=== PATIENT | male | born 1990 | race Caucasian/White ===

== ENCOUNTER 2017-01-13 19:13 | Emergency (ER) | payer BC ==
[~2017-01-13] VITALS: Ht 190.5 cm; Wt 104.3 kg
[~2017-01-13 19:13] MED LIST: DM/P295L2 PO; MECL25TA3 PO
[2017-01-13 19:30] VITALS: BP 135/76
--- NOTE | 2017-01-13 20:46 | PHYS DOC ---
Past History Past Medical History: Anxiety Past Surgical History: Cholecystectomy Smoking: Non-smoker Alcohol Use: Occasionally Drug Use: None Adult General Chief Complaint Chief Complaint: UPPER EXTREMITY INJURY [facility] HPI Healthy 26-year-old male with no significant past history now complaining out right forearm soreness after an injury while playing softball. States he tried to jump up to catch a ball which was going to go over the fence as a home run. As he came down he hit his forearm on the fence. He suffered a small abrasion as well as a bruise of the forearm. It swollen sore since the injury. Become slightly more swollen and more sore since it initially happened. He is able to use his hand normally as well as full range of motion of the elbow and wrist without difficulty. She does not take anticoagulants nor does he have any history of coagulopathy. No prior injury to or surgeries on this forearm. Review of Systems Review of Systems Constitutional: Denies fever or chills [] Eyes: Denies change in visual acuity, redness, or eye pain [] HENT: Denies nasal congestion or sore throat [] Respiratory: Denies cough or shortness of breath [] Cardiovascular: No additional information not addressed in HPI [] GI: Denies abdominal pain, nausea, vomiting, bloody stools or diarrhea [] : Denies dysuria or hematuria [] Musculoskeletal: Denies back pain or joint pain [] Integument: Denies rash or skin lesions [] Neurologic: Denies headache, focal weakness or sensory changes [] Endocrine: Denies polyuria or polydipsia [] Allergies Allergies Allergies Coded Allergies Type Severity Reaction Last Updated Verified No Known Drug Allergies 09/15/13 No Physical Exam Physical Exam Well-appearing male no acute distress mild soft tissue swelling at the proximal one third of his right forearm. Mild hematoma without fluctuance or crepitus. Abrasion without erythema or warmth A shows normal painless range of motion of elbow and wrist. No bony tenderness. Soft compartments with good distal mobility. Constitutional: Well developed, well nourished, no acute distress, non-toxic appearance. [] HENT: Normocephalic, atraumatic, bilateral external ears normal, oropharynx moist, no oral exudates, nose normal. [] Eyes: PERRLA, EOMI, conjunctiva normal, no discharge. [] Neck: Normal range of motion, no tenderness, supple, no stridor. [] Cardiovascular:Heart rate regular rhythm, no murmur [] Lungs & Thorax: Bilateral breath sounds clear to auscultation [] Abdomen: Bowel sounds normal, soft, no tenderness, no masses, no pulsatile masses. [] Skin: Warm, dry, no erythema, no rash. [] Back: No tenderness, no CVA tenderness. [] Extremities: As above, no cyanosis, no clubbing, ROM intact, no edema. [] Neurologic: Alert and oriented X 3, normal motor function, normal sensory function, no focal deficits noted. [] Psychologic: Affect normal, judgement normal, mood normal. [] Current Patient Data Vital Signs Vital Signs Date Time Temp Pulse Resp B/P (MAP) Pulse Ox O2 Delivery O2 Flow Rate FiO2 01/13/17 19:30 98.6 93 18 135/76 (95) 98 Room Air EKG EKG [] Radiology/Procedures Radiology/Procedures X-ray of the right forearm interpreted by me with no bony abnormality and minimal soft tissue swelling in the proximal one third of the ulnar distribution. [] Course & Med Decision Making Course & Med Decision Making Pertinent Labs and Imaging studies reviewed. (See chart for details) Signs and symptoms consistent with contusion and mild hematoma of the right forearm with a small abrasion. Patient's tetanus is up-to-date. Soft compartments nothing to suggest an syndrome. X-ray negative for fracture. Ice applied. Patient were to take NSAIDs rest ice and elevate follow up with PCP tomorrow. I discussed the possible complication of compartment syndrome with the patient however he is clear that this is very unlikely to happen. He will return immediately for new severe worsening symptoms. [] Dragon Disclaimer Dragon Disclaimer This chart was dictated in whole or in part using Voice Recognition software in a busy, high-work load, and often noisy Emergency Department environment. It may contain unintended and wholly unrecognized errors or omissions. Departure Departure: Disposition: 01 HOME, SELF-CARE Condition: IMPROVED Referrals: PCP[facility] (PCP) Patient Instructions: Elbow Contusion, Hematoma Additional Instructions: The contusion of your forearm has caused a small hematoma and soft tissue swelling. The xray does not show any fracture. Rest, apply ice when possible, Take ibuprofen 800 mg every 6 hours as needed for pain. Follow up with your doctor in 2 days and return immediately for new or severe symptoms, specifically for severe swelling and worsening pain in the forearm and hand, which could suggest an evolving compartment syndrome as we discussed. KOURTNEY BAKER MD Jan 13, 2017 20:46
--- NOTE | 2017-01-14 07:22 | RAD ---
Indication: Right forearm pain and injury, fall. Time of exam 1944 hours. 2 views of the right forearm were obtained. There is a small calcific density projected in the elbow joint on the AP view adjacent to the proximal radius and ulna. This may represent a small loose body. The radius and ulna appear intact. No definite other site of fracture is seen. Alignment at the wrist is normal. No elbow joint effusion is identified. Impression: Probable tiny loose body at the elbow. The study is otherwise unremarkable.
== END 2017-01-13 20:50 | disposition home or self-care (01) ==
LOC: ER 19:13
DX: S50.11XA Contusion of right forearm, initial encounter (principal); F41.9 Anxiety disorder, unspecified; W22.8XXA Striking against or struck by other objects, initial encounter; Y93.64 Activity, baseball; Y99.8 Other external cause status; Y92.89 Other specified places as the place of occurrence of the external cause
CPT/HCPCS: 73090; 99284

== ENCOUNTER 2018-02-03 08:15 | Emergency (ER) | payer BC ==
[~2018-02-03] VITALS: Ht 190.5 cm; Wt 101.6 kg
[2018-02-03] MEDS ORDERED: IV NORMAL SALINE 1,000ML 1,000 ML IV SCH (08:43)
[2018-02-03] MEDS ORDERED: KETOROLAC 30 MG/ML VIAL. ONE (08:44)
[2018-02-03] MEDS ORDERED: ONDANSETRON PF 4 MG/2 ML VIAL. ONE (08:44)
--- NOTE | 2018-02-03 08:57 | PHYS DOC ---
Past History Past Medical History: No Pertinent History Past Surgical History: Cholecystectomy, Other Smoking: Non-smoker Alcohol Use: None Drug Use: None Adult General Chief Complaint Chief Complaint: NAUSEA/VOMITING/DIARRHEA HPI HPI Patient is a 27-year-old male who presents for evaluation of nausea and vomiting as well as lower abdominal discomfort. He states that 2 days ago he ate at a [employer] fast food restaurant and about 3 hours later started to develop nausea and vomiting. He states the first night he was vomiting every 20- 30 minutes and that over the last few days this has been gradually improving. He rates his abdominal discomfort at a 3 out of 10 currently. He is status post cholecystectomy but denies any other past surgical history. He denies any hematemesis, diarrhea, rectal bleeding, chest pain, headache, back pain, diaphoresis, or dysuria/hematuria. He is also c/o a sore throat over the last few days and has had a low grade fever of 100.0 at home. He is 99.1 on arrival. He also feels somewhat dizzy and sob. Review of Systems Review of Systems Constitutional: [] +fever Eyes: Denies change in visual acuity, redness, or eye pain [] HENT: Denies nasal congestion +sore throat Respiratory: Denies cough [] +sob Cardiovascular: No additional information not addressed in HPI [] GI: Denies bloody stools or diarrhea [] + abdominal pain, n/v : Denies dysuria or hematuria [] Musculoskeletal: Denies back pain or joint pain [] Integument: Denies rash or skin lesions [] Neurologic: Denies headache, focal weakness or sensory changes [] +dizziness Endocrine: Denies polyuria or polydipsia [] All other systems were reviewed and found to be within normal limits, except as documented in this note. Allergies Allergies Allergies Coded Allergies Type Severity Reaction Last Updated Verified No Known Drug Allergies 09/15/13 No Physical Exam Physical Exam Constitutional: Well developed, well nourished, no acute distress, non-toxic appearance. [] appears fatigued HENT: Normocephalic, atraumatic, bilateral external ears normal, oropharynx moist, no oral exudates, nose normal. [] Eyes: PERRLA, EOMI, conjunctiva normal, no discharge. [] Neck: Normal range of motion, no tenderness, supple, no stridor. [] Cardiovascular:Heart rate regular rhythm, no murmur [] Lungs & Thorax: Bilateral breath sounds clear to auscultation [] Abdomen: Bowel sounds normal, soft, no masses, no pulsatile masses. [] no focal abdominal ttp, benign exam Skin: Warm, dry, no erythema, no rash. [] Back: No tenderness, no CVA tenderness. [] Extremities: No tenderness, no cyanosis, no clubbing, ROM intact, no edema. [] Neurologic: Alert and oriented X 3, normal motor function, normal sensory function, no focal deficits noted. [] Psychologic: Affect normal, judgement normal, mood normal. [] EKG EKG [] Radiology/Procedures Radiology/Procedures [] Course & Med Decision Making Course & Med Decision Making Pertinent Labs and Imaging studies reviewed. (See chart for details) Laboratory Tests Test 02/03/18 08:48 02/03/18 09:45 White Blood Count 14.9 x10^3/uL Red Blood Count 5.32 x10^6/uL Hemoglobin 14.7 g/dL Hematocrit 43.5 % Mean Corpuscular Volume 82 fL Mean Corpuscular Hemoglobin 28 pg Mean Corpuscular Hemoglobin Concent 34 g/dL Red Cell Distribution Width 13.4 % Platelet Count 185 x10^3/uL Neutrophils (%) (Auto) 85 % Lymphocytes (%) (Auto) 7 % Monocytes (%) (Auto) 7 % Eosinophils (%) (Auto) 0 % Basophils (%) (Auto) 1 % Neutrophils # (Auto) 12.7 x10^3uL Lymphocytes # (Auto) 1.0 x10^3/uL Monocytes # (Auto) 1.0 x10^3/uL Eosinophils # (Auto) 0.0 x10^3/uL Basophils # (Auto) 0.1 x10^3/uL Sodium Level 134 mmol/L Potassium Level 3.9 mmol/L Chloride Level 100 mmol/L Carbon Dioxide Level 27 mmol/L Anion Gap 7 Blood Urea Nitrogen 10 mg/dL Creatinine 1.3 mg/dL Estimated GFR (Cockcroft-Gault) 65.7 BUN/Creatinine Ratio 8 Glucose Level 99 mg/dL Calcium Level 9.0 mg/dL Magnesium Level 2.2 mg/dL Total Bilirubin 0.6 mg/dL Aspartate Amino Transf (AST/SGOT) 16 U/L Alanine Aminotransferase (ALT/SGPT) 24 U/L Alkaline Phosphatase 90 U/L Total Protein 8.1 g/dL Albumin 3.7 g/dL Albumin/Globulin Ratio 0.8 Lipase 93 U/L Urine Collection Type Unknown Urine Color Yellow Urine Clarity Turbid Urine pH 8.0 Urine Specific [place] 1.015 Urine Protein 30 mg/dl Urine Glucose (UA) Neg mg/dL Urine Ketones (Stick) 40 mg/dL Urine Blood Trace Urine Nitrite Neg Urine Bilirubin Neg Urine Urobilinogen Dipstick 4 mg/dL Urine Leukocyte Esterase Neg Urine RBC 3-5 /HPF Urine WBC 1-4 /HPF Urine Squamous Epithelial Cells Few /LPF Urine Amorphous Sediment Present /HPF Urine Bacteria Few /HPF Urine Mucus Slight /LPF Current Medications Medications (Trade) Dose Ordered Sig/Tucker Route PRN Reason Start Time Stop Time Status Last Admin Dose Admin Sodium Chloride 1,000 ml @ 1,000 mls/hr Q1H IV 02/03/18 08:43 02/03/18 09:42 DC 02/03/18 08:53 Ondansetron HCl (Zofran) 4 mg 1X ONCE IV 02/03/18 09:10 02/03/18 09:11 DC 02/03/18 08:54 Ketorolac Tromethamine (Toradol) 30 mg 1X ONCE IV 02/03/18 09:10 02/03/18 09:11 DC 02/03/18 08:56 Ondansetron HCl (Zofran) 4 mg STK-MED ONCE .ROUTE 02/03/18 08:44 02/03/18 08:45 DC Ketorolac Tromethamine (Toradol) 30 mg STK-MED ONCE .ROUTE 02/03/18 08:44 02/03/18 08:45 DC Dexamethasone Sodium Phosphate (Decadron) 10 mg 1X ONCE IV 02/03/18 09:40 02/03/18 09:41 DC 02/03/18 09:33 Amoxicillin (Amoxil) 500 mg 1X ONCE PO 02/03/18 09:40 02/03/18 09:41 DC 02/03/18 09:36 Multi-Ingredient Mouthwash/Gargle (Gi Cocktail) 10 ml 1X ONCE PO 02/03/18 09:40 02/03/18 09:41 DC 02/03/18 09:32 @0845 - +orthostatic vs's --> IVF's ordered @1020 - Pt updated on lab results and states he is feeling much better. Strep positive, first dose of amoxicillin given in the ED. VSS. Workup today fails to reveal any emergent medical condition. Encouraged pt to f/u with his PCP in the next 1-2 days. Encouraged pt to return immediately for new or worsening symptoms. Dragon Disclaimer Dragon Disclaimer This electronic medical record was generated, in whole or in part, using a voice recognition dictation system. Departure Departure: Impression: Primary Impression: Strep pharyngitis Additional Impressions: Nausea & vomiting Dehydration Abdominal pain Disposition: HOME, SELF-CARE Condition: STABLE Referrals: KATIA BRONSON (PCP) Patient Instructions: Abdominal Migraine, Dehydration, Adult, Food Poisoning, Strep Throat Additional Instructions: Take the antibiotic as directed in the nausea medication as needed. Follow-up with your primary care physician in the next 1-2 days. Return to the emergency Department immediately for new or worsening symptoms. Drink plenty of water at home. Scripts Ondansetron (ZOFRAN ODT) 4 Mg Tab.rapdis 1 TAB SL Q8HRS PRN for NAUSEA/VOMITING, #20 TAB Prov: RAMEZ KU DO 02/03/18 Amoxicillin (AMOXICILLIN) 500 Mg Tablet 1 TAB PO BID for 10 Days, #20 TAB Prov: RAMEZ KU DO 02/03/18 Problem Qualifiers RAMEZ KU DO Feb 03, 2018 08:57
[2018-02-03 09:01] LABS: BASO # 0.1 x10^3/uL (0.0-0.2); BASO % 1 % (0-3); EOS % 0 % (0-3); HEMATOCRIT 43.5 % (39.0-53.0); HEMOGLOBIN 14.7 g/dL (13.0-17.5); LYMPH % 7 % (24-48); MEAN CORPUSCULAR HEMOGLOBIN 28 pg (25-35); MEAN CORPUSCULAR HGB CONC 34 g/dL (31-37); MEAN CORPUSCULAR VOLUME 82 fL (79-100); MONO % 7 % (0-9); NEUT # 12.7 x10^3uL (1.8-7.7); NEUT % 85 % (31-73); PLATELET COUNT 185 x10^3/uL (140-400); RED BLOOD COUNT 5.32 x10^6/uL (4.30-5.70); RED CELL DISTRIBUTION WIDTH 13.4 % (11.5-14.5); WHITE BLOOD COUNT 14.9 x10^3/uL (4.0-11.0)
[2018-02-03] MEDS ORDERED: ONDANSETRON PF 4 MG/2 ML VIAL. IV ONE (09:10)
[2018-02-03] MEDS ORDERED: KETOROLAC 30 MG/ML VIAL. IV ONE (09:10)
[2018-02-03 09:15] LABS: ALBUMIN 3.7 g/dL (3.4-5.0); ALBUMIN/GLOBULIN RATIO 0.8 (1.0-1.7); CREATININE 1.3 mg/dL (0.7-1.3); GFR 65.7; MAGNESIUM 2.2 mg/dL (1.8-2.4); POTASSIUM 3.9 mmol/L (3.5-5.1); TOTAL BILIRUBIN 0.6 mg/dL (0.2-1.0); TOTAL PROTEIN 8.1 g/dL (6.4-8.2)
[2018-02-03] MEDS ORDERED: ONDA4TAB10 SL (09:16)
[2018-02-03] MEDS ORDERED: AMOX500T PO (09:16)
[2018-02-03] MEDS ORDERED: DEXAMETHASONE SOD PHOS 10 MG/ML VIAL IV ONE (09:40)
[2018-02-03] MEDS ORDERED: AMOXICILLIN 250 MG CAPSULE PO ONE (09:40)
[2018-02-03] MEDS ORDERED: LIDO:MAALOX 1:1 20 ML SINGLE DOSE. PO ONE (09:40)
[2018-02-03 10:16] LABS: AMORPHOUS SEDIMENT,UR PRESENT /HPF; BACTERIA,URINE FEW /HPF (0-FEW); BILIRUBIN,URINE NEG (NEG); CLARITY,URINE TURBID; COLOR,URINE YELLOW; GLUCOSE,URINE NEG (NEG); NITRITE,URINE NEG (NEG); SQUAMOUS EPITHELIAL CELL,UR FEW /LPF; UROBILINOGEN,URINE 4 mg/dL (0.2 mg/dL)
[2018-02-03 10:47] VITALS: BP 121/56
== END 2018-02-03 10:47 | disposition home or self-care (01) ==
LOC: ER 08:15
DX: E86.0 Dehydration (principal); J02.0 Streptococcal pharyngitis; R10.9 Unspecified abdominal pain; Z90.49 Acquired absence of other specified parts of digestive tract
CPT/HCPCS: 36415; 80053; 81001; 83690; 83735; 85025; 87880; 96361; 96374; 96375; 99285; J1100; J1885; J2405; 99284-25; J7030

== ENCOUNTER → 2020-12-14 | Outpatient (CLI) | payer BC ==
[~2020-12-14] MED LIST changes: +AMOX500T PO; +MECL-75 PO; -MECL25TA3 PO; +ONDA4TAB10 SL
--- NOTE | 2020-12-14 12:12 | RAD ---
EXAM: Chest and left ribs, 4 views. HISTORY: Pain. COMPARISON: None. FINDINGS: A frontal view of the chest and 3 views of the left ribs are obtained. There is no infiltra te, pleural effusion or pneumothorax. The heart is normal in size. No displaced rib fracture is seen. IMPRESSION: No acute pulmonary or osseous finding. Electronically signed by: Brenda Baltazar MD (12/14/2020 12:09 PM) [id number]
== END ==
LOC: RAD 11:54
DX: R07.81 Pleurodynia (principal)
CPT/HCPCS: 71101